=== PATIENT | female | born 1960 | race Caucasian/White ===

== ENCOUNTER 2018-11-17 12:12 | Emergency (ER) | payer OTHER ==
[~2018-11-17] VITALS: Ht 162.6 cm; Wt 54.4 kg
--- OUTSIDE RECORDS SUMMARY | ~2018-11-17 | XMS | Clinical Summary ---
Demographics + + + | Address | [address] [address] [address] | | | [place] [address] | + + + | Home Phone | | + + + | Preferred Language | Unknown | + + + | Marital Status | Single | + + + | Scientology Affiliation | Unknown | + + + | Race | White | + + + | Ethnic Group | Not or | + + + Author + + + | Author | [facility] | + + + | Organization | [facility] | + + + | Address | Unknown | + + + | Phone | Unavailable | + + + Care Team Providers + +------+ + | Care Education Counselor Name | Role | Phone | + +------+ + | Stacy Kennedy | PP | Unavailable | + +------+ + Source Comments [facility] Allergies Not on File Medications Not on file Active Problems Not on file Social History + +-------+ +--------+------+ | Tobacco Use | Types | Packs/Day | Years | Date | | | | | Used | | + +-------+ +--------+------+ | Never Assessed | | | | | + +-------+ +--------+------+ + + + | Sex Assigned at | Date Recorded | | | | + + + | Not on file | | + + + + + + + | Job Start Date | Occupation | Industry | + + + + | Not on file | Not on file | Not on file | + + + + + + + + | Travel History | Travel Start | Travel End | + + + + + + | No recent travel history available. | + + Plan of Treatment + + + + + | Health Maintenance | Due Date | Last Done | Comments | + + + + + | Influenza (Flu) | | | | | vaccination (Season | 9 | | | | Ended) | | | | + + + + + Results Not on filefrom Last 3 Months Insurance + +--------+ +--------+-------+---------+--------+ | Payer | Benefi | Subscriber | Effect | Phone | Address | Type | | | t Plan | ID | stephie | | | | | | / | | Dates | | | | | | Group | | | | | | + +--------+ +--------+-------+---------+--------+ | USER EXPERIENCE ANALYST MEDICAID | USER EXPERIENCE ANALYST | xxxxxxxx | Effect | | | Medica | | | [place] | | [place] | | | id | | | [place] | | for | | | | | | | | all | | | | | | | | dates | | | | + +--------+ +--------+-------+---------+--------+ + +--------+ +--------+ + + | Guarantor Name | Accoun | Relation to | Date | Phone | Billing Address | | | t Type | Patient | of | | | | | | | | | | + +--------+ +--------+ + + | Earnestine Polanco | Person | Self | [birth year] | [address] | | | al/Fam | | 1960 | [phone] | [place] [address] | | | binta | | | [address] (Home) | | + +--------+ +--------+ + +"
--- OUTSIDE RECORDS SUMMARY | ~2018-11-17 | XMS | Encounter Summary ---
Demographics + + + | Address | [address] [address] [address] | | | [place] [address] | + + + | Home Phone | | + + + | Preferred Language | Unknown | + + + | Marital Status | Single | + + + | Sabianist Affiliation | Unknown | + + + | Race | White | + + + | Ethnic Group | Not or | + + + Author + + + | Author | [facility] | + + + | Organization | [facility] | + + + | Address | Unknown | + + + | Phone | Unavailable | + + + Care Team Providers + +------+ + | Care Strategy Specialist Name | Role | Phone | + +------+ + | Stacy Kennedy | PCP | Unavailable | + +------+ + Encounter Details +--------+ + + + + | Date | Type | Department | Care Team | Description | +--------+ + + + + | 04/24/ | Document-Sc | Dermatology at | [facility] | | | 2016 | anned | [place] [facility] | [address] | | | | | [address] | | | | [place], [place] | [place] | | | | | [address] | [address] | | | | | [phone] | [phone] | | | | | | | | +--------+ + + + + Social History + +-------+ +--------+------+ | Tobacco [...] recent travel history available. | + + documented as of this encounter Plan of Treatment Not on filedocumented as of this encounter Visit Diagnoses Not on filedocumented in this encounter"
--- OUTSIDE RECORDS SUMMARY | ~2018-11-17 | XMS | Clinical Summary ---
Demographics + + + | Address | [address] [address] [address] | | | [place] [address] | + + + | Home Phone | | + + + | Preferred Language | Unknown | + + + | Marital Status | Single | + + + | Baptism Affiliation | Unknown | + + + | Race | White | + + + | Ethnic Group | Not or | + + + Author + + + | Author | [facility] | + + + | Organization | [facility] | + + + | Address | Unknown | + + + | Phone | Unavailable | + + + Care Team Providers + +------+ + | Care Stockroom Selector Name | Role | Phone | + +------+ + | Stacy Kennedy | PP | Unavailable | + +------+ + Source Comments RACHEL is fully live on [facility] [place] [facility] Allergies Not on File Medications Not on [...] | | | + +--------+ +--------+-------+---------+--------+ | 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
--- OUTSIDE RECORDS SUMMARY | ~2018-11-17 | XMS | Encounter Summary ---
Demographics + + + | Address | [address] [address] [address] | | | [place] [address] | + + + | Home Phone | | + + + | Preferred Language | Unknown | + + + | Marital Status | Single | + + + | Buddhist Affiliation | Unknown | + + + | Race | White | + + + | Ethnic Group | Not or | + + + Author + + + | Author | [facility] | + + + | Organization | [facility] | + + + | Address | Unknown | + + + | Phone | Unavailable | + + + Care Team Providers + +------+ + | Care Temperature Regulator Name | Role | Phone | + +------+ + | Stacy Kennedy | PCP | Unavailable | + +------+ + Encounter Details +--------+ + + + + | Date | Type | Department | Care Team | Description | +--------+ + + + + | 04/24/ | Document-Sc | Dermatology at | [facility] | | | 2016 | anned | [place] [facility] | [address] 1932 | | | | | [address] | [address] | | | | [place], [place] | [place] | | | | | [address] | [address] | | | | | [phone] | [phone] | | | | | | | [...]
[~2018-11-17 12:12] MED LIST: CENTRUM SILVER1 EAC5 PO; MOTRIN IB200 MG PO; NICOTINE LOZENGE4 MG BUCCAL; PERCOCET 5-3251 EACH PO; POLYTRIM EYE DR10 ML OD
--- OUTSIDE RECORDS SUMMARY | 2018-11-17 12:14 | XMS ---
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 Joe has no Care Guidelines for this patient. [place] VISIT COUNT (12 MO.) 2 [facility] T[facility] 2 NOTE: Visits indicate total known visits. ED/C VISIT TRACKING (12 MO.) 11[facility]17/2018 12:[facility] [place] [facility] COMPLAINT: - ABDOMINAL PAIN 11/04/2018 18:[address] [facility] [place] TYPE: Emergency COMPLAINT: - L ANKLE PAIN DIAGNOSES: - Anemia, unspecified - Other and unspecified overexertion or strenuous movements or postures, initial encounter - Nicotine dependence, other tobacco product, uncomplicated - Emphysema, unspecified - Sprain of unspecified ligament of left ankle, initial encounter - Nicotine dependence, unspecified, uncomplicated - Pain in left ankle and joints of left foot INPATIENT VISIT TRACKING (12 MO.) No inpatient visits to display in this time frame [id number]
[2018-11-17] MEDS ORDERED: KEFLEX500 MG PO (15:49)
[2018-11-17] MEDS ORDERED: NORCO 5-325 TA1 EACH PO (15:49)
== END 2018-11-17 16:07 | disposition home or self-care (01) ==
LOC: ED 12:12
DX: N39.0 Urinary tract infection, site not specified (principal); D64.9 Anemia, unspecified; F17.200 Nicotine dependence, unspecified, uncomplicated
CPT/HCPCS: 74176; 80053; 81001; 85025; 96361; 96374; 96375; 99284-25; J1170; J1885; J2405; J7030

== ENCOUNTER 2021-07-28 21:44 | Emergency (ER) | payer OTHER ==
[~2021-07-28] VITALS: Ht 162.6 cm; Wt 54.4 kg
[~2021-07-28 21:44] MED LIST changes: +KEFLEX500 MG PO; +NORCO 5-325 TA1 EACH PO
[2021-07-28] MEDS ORDERED: MUPIROCIN22 GM TOP (22:03)
== END 2021-07-28 22:35 | disposition home or self-care (01) ==
LOC: ED 21:44
DX: L98.499 Non-pressure chronic ulcer of skin of other sites with unspecified severity (principal); D64.9 Anemia, unspecified; J43.9 Emphysema, unspecified; F17.200 Nicotine dependence, unspecified, uncomplicated; Z88.1 Allergy status to other antibiotic agents; Z79.899 Other long term (current) drug therapy
CPT/HCPCS: 99282

== ENCOUNTER 2023-03-18 09:54 | Emergency (ER) | payer OTHER ==
[~2023-03-18] VITALS: Ht 162.6 cm; Wt 48.1 kg
[~2023-03-18 09:54] MED LIST changes: +MUPIROCIN22 GM TOP
[2023-03-18] MEDS ORDERED: HYDROCODON-ACE1 EA10 PO (12:06)
[2023-03-18 12:25] VITALS: BP 106/79
== END 2023-03-18 12:25 | disposition home or self-care (01) ==
LOC: ED 09:54
DX: S82.145A Nondisplaced bicondylar fracture of left tibia, initial encounter for closed fracture (principal); W18.30XA Fall on same level, unspecified, initial encounter; Y93.K1 Activity, walking an animal; F17.200 Nicotine dependence, unspecified, uncomplicated
CPT/HCPCS: 73560; 73700; 99284-25; A9270

== ENCOUNTER 2023-09-30 21:06 | Emergency (ER) | payer OTHER ==
[~2023-09-30] VITALS: Ht 162.6 cm; Wt 50.1 kg
[~2023-09-30 21:06] MED LIST changes: +HYDROCODON-ACE1 EA10 PO
[2023-09-30 21:21] LABS: BASOPHILS 1.1 % (0-2); EOSINOPHILS 1.1 % (0-6); HEMATOCRIT 38.1 % (35.0-50.0); HEMOGLOBIN 12.7 g/dL (12.0-18.0); LYMPHOCYTES 47.2 % (24-44); MCH 30.5 (27-36); MCHC 33.3 g/dl (30-36); MCV 91.8 fl (81-99); MONOCYTES 5.9 % (0-12); NEUTROPHILS 44.7 % (39-80); PLATELET COUNT 214 K/uL (140-440); RBC 4.15 M/ul (4.3-5.7); RDW 13.4 (10.5-15.0)
[2023-09-30] MEDS ORDERED: LACTATED RINGER'S 1,000 ML IV ONE (21:30)
[2023-09-30 21:37] LABS: ALBUMIN/GLOBULIN RATIO 0.97 (1.1-2.4); ALKALINE PHOSPHATASE 76 U/L (46-116); ALT (SGPT) 15 U/L (14-59); ANION GAP 11.9 (7-21); AST (SGOT) 12 U/L (15-37); BILIRUBIN, TOTAL 0.2 ng/dL (0.2-1.0); BUN/CREATININE RATIO 11.39 (6.0-28.6); CARBON DIOXIDE 28 mmol/L (21-32); CHLORIDE 104 mmol/L (98-107); CREATININE, SERUM 0.79 mg/dL (0.55-1.02); GLOMERULAR FILTRATION RATE,EST 85 mL/min (>60); MAGNESIUM 1.9 mg/dL (1.8-2.4); POTASSIUM 2.9 mmol/L (3.5-5.1); PROTEIN, TOTAL 6.1 g/dL (6.4-8.2); UREA NITROGEN 9 mg/dL (7-18)
[2023-09-30] MEDS ORDERED: droPERidol 5 MG/2 ML VIAL IV ONE (22:00)
[2023-09-30] MEDS ORDERED: POTASSIUM CHLORIDE 20 MEQ/15 ML CUP PO ONE (22:00)
[2023-09-30] MEDS ORDERED: POTASSIUM CHLORIDE 10 MEQ TABCR PO ONE (22:45)
[2023-09-30 23:00] LABS: BILIRUBIN, URINE NEGATIVE (negative); BLOOD/HGB, URINE NEGATIVE (Negative); KETONE, URINE NEGATIVE (Negative); LEUK ESTERASE, URINE NEGATIVE (negative); NITRITE, URINE NEGATIVE (negative)
[2023-09-30] MEDS ORDERED: K-TAB ER20 MEQ PO (23:21)
[2023-09-30 23:22] LABS: AMPHETAMINES, URINE NEGATIVE (NEGATIVE); BARBITURATES, URINE NEGATIVE (NEGATIVE); BENZODIAZEPINE, URINE NEGATIVE (NEGATIVE); BUPRENORPHINE, URINE NEGATIVE (NEGATIVE); CANNABINOID, URINE POSITIVE (NEGATIVE); COCAINE, URINE NEGATIVE (NEGATIVE); ECSTASY, URINE NEGATIVE (NEGATIVE); FENTANYL, URINE NEGATIVE (NEGATIVE); METHADONE, URINE NEGATIVE (NEGATIVE); OPIATES, URINE NEGATIVE (NEGATIVE); OXYCODONE, URINE NEGATIVE (NEGATIVE); PHENCYCLIDINE, URINE NEGATIVE (NEGATIVE)
[2023-09-30 23:31] VITALS: BP 112/76
--- NOTE | 2023-10-01 21:57 | EKG ---
[facility] [address] [facility] [place] [address] Signed Sinus bradycardia Otherwise normal ECG No previous ECGs available Confirmed by Khris Forbes MD () on 10/01/2023 9:57:36 PM Electronically Signed By: KHRIS FORBES MD 10/01/23 2157 PATIENT NAME: ABBY CASTELLANOS Electrocardiogram DATE OF : 64 PHYSICIAN: HKRIS FORBES MD REPORT #: [id number] REPORT IS CONFIDENTIAL AND NOT TO BE RELEASED WITHOUT AUTHORIZATION
== END 2023-09-30 23:32 | disposition home or self-care (01) ==
LOC: ED 21:06
PROVIDERS: Internal Medicine
DX: R55 Syncope and collapse (principal); E87.6 Hypokalemia; J43.9 Emphysema, unspecified; F17.200 Nicotine dependence, unspecified, uncomplicated
CPT/HCPCS: 36415; 80053; 80307; 81003; 83735; 84484; 85025; 93005; 93010; 96374; 99284-25; A9270; J1790; J7121

== ENCOUNTER 2024-09-22 08:41 | Emergency (ER) | payer OTHER ==
[~2024-09-22] VITALS: Ht 162.6 cm; Wt 49.9 kg
[~2024-09-22 08:41] MED LIST changes: +K-TAB ER20 MEQ PO
[2024-09-22] MEDS ORDERED: MAG-TAB SR84 MG PO (09:04)
[2024-09-22] MEDS ORDERED: MULTI-VITAMIN1 EACH PO (09:04)
[2024-09-22 09:54] VITALS: BP 138/74
== END 2024-09-22 09:54 | disposition home or self-care (01) ==
LOC: ED 08:41
DX: S93.602A Unspecified sprain of left foot, initial encounter (principal); F17.200 Nicotine dependence, unspecified, uncomplicated; Z79.899 Other long term (current) drug therapy; W01.0XXA Fall on same level from slipping, tripping and stumbling without subsequent striking against object, initial encounter
CPT/HCPCS: 73630; 99283